=== PATIENT | female | born 1975 | race Caucasian/White ===

== ENCOUNTER 2016-08-15 09:52 | Day surgery (SDC) | payer OTHER ==
[~2016-08-15] VITALS: Ht 172.7 cm; Wt 81.8 kg
[~2016-08-15 09:52] MED LIST: CELEXA20 MG PO; CELEXA40 MG PO; DEPO-PROVER150 MG/ML IM; GLYBURIDE2.5 MG PO; IBUPROFEN800 MG PO; IRON240 MG PO; MOBIC15 MG PO; MOTRIN800 MG PO; PRENATAL + DHA1 EAC1 PO; SKELAXIN800 MG PO; ULTRAM50 MG PO; XANAX; XANAX0.5 MG PO; XANAX1 MG PO; Xanax PO; ZOLOFT100 MG PO
[2016-08-15 10:26] VITALS: BP 122/80
[2016-08-15 10:59] LABS: HEMATOCRIT 35.6 % (36.0-46.0); MCV 85.4 FL (83-99)
[2016-08-15] MEDS ORDERED: MOTRIN800 MG PO (13:00)
[2016-08-15] MEDS ORDERED: ENDOCET 5-3251 EACH PO (13:00)
[2016-08-15 13:58] VITALS: BP 114/69
[2016-08-15 15:10] VITALS: BP 118/72
== END 2016-08-15 15:30 | disposition home or self-care (01) ==
LOC: SDC 09:52
PROVIDERS: Obstetrics & Gynecology
PROC: 0UB74ZZ Excision of Bilateral Fallopian Tubes, Percutaneous Endoscopic Approach (ICD-10-PCS; principal; 2016-08-15)
DX: Z30.2 Encounter for sterilization (principal); N39.3 Stress incontinence (female) (male); F41.8 Other specified anxiety disorders
CPT/HCPCS: 84702; 85014; 85018; 86850; 86900; 86901; 88302; J0131; J1100; J1885; J2250; J2405; J2710; J3010

== ENCOUNTER 2016-10-29 07:34 | Emergency (ER) | payer OTHER ==
[~2016-10-29] VITALS: Ht 172.7 cm; Wt 93.7 kg
[~2016-10-29 07:34] MED LIST changes: +ENDOCET 5-3251 EACH PO
[2016-10-29 08:02] LABS: EOSINOPHIL (%) 2.3 % (0-5); EOSINOPHIL COUNT 0.1 K/uL (0-0.3); HEMATOCRIT 36.4 % (36.0-46.0); IMMATURE GRANULOCYTE (%) 0.4 % (0.0-0.7); INSTRUMENT ABS NEUTROPHIL CT 3.2 K/uL; LYMPHOCYTE COUNT 1.9 K/uL (1.0-2.8); MCH 29.9 PG (29.0-34.0); MCV 90.5 FL (83-99); MEAN PLAT.VOLUME 9.1 uM^3 (9.5-12.4); MONOCYTE (%) 6.5 % (3-12); MONOCYTE COUNT 0.4 K/uL (0-0.8); NEUTROPHIL (%) 56.6 % (45-76); NEUTROPHIL COUNT 3.2 K/uL (1.8-6.4); PLATELET COUNT 222 K/uL (156-360); RBC DIS.WIDTH-SD 43.1 % (39-53); RED BLOOD COUNT 4.02 M/uL (3.80-5.20); WHITE BLOOD COUNT 5.6 K/uL (4.1-10.2)
[2016-10-29 08:25] LABS: ANION GAP 7 MEQ/L (2-14); CHLORIDE 107 MEQ/L (99-109); POTASSIUM 3.6 MEQ/L (3.7-5.4); SAMPLE HEMOLYSIS CHECK 0; SAMPLE ICTERIC CHECK 0; SAMPLE LIPEMIA CHECK 0; SODIUM 140 MEQ/L (136-147)
[2016-10-29 08:31] LABS: GFR ESTIMATE (CALCULATED) > 59 mL/min/; GLUCOSE 88 mg/dL (70-99); UREA NITROGEN (BUN) 10 mg/dL (9-23)
[2016-10-29 09:04] VITALS: BP 161/87
[2016-10-29 09:04] LABS: QUANTITATIVE HCG < 4.0 MIU/ML
== END 2016-10-29 09:04 | disposition home or self-care (01) ==
LOC: EME 07:34
PROVIDERS: Emergency Medicine
DX: N93.9 Abnormal uterine and vaginal bleeding, unspecified (principal); Z87.891 Personal history of nicotine dependence
CPT/HCPCS: 80048; 84702; 85025; 99281; 99284; J2405; J7030

== ENCOUNTER 2016-11-20 06:30 | Day surgery (SDC) | payer OTHER ==
[~2016-11-20] VITALS: Ht 172.7 cm; Wt 86.2 kg
[~2016-11-20 06:30] MED LIST changes: +SPRINTEC1 EACH PO
[2016-11-20 07:03] VITALS: BP 137/96
[2016-11-20] MEDS ORDERED: MOTRIN800 MG PO (08:56)
[2016-11-20 09:33] VITALS: BP 137/84
[2016-11-20 10:18] VITALS: BP 153/82
== END 2016-11-20 10:37 | disposition home or self-care (01) ==
LOC: SDC 06:30
DX: N93.9 Abnormal uterine and vaginal bleeding, unspecified (principal); N94.6 Dysmenorrhea, unspecified; N92.0 Excessive and frequent menstruation with regular cycle; N39.3 Stress incontinence (female) (male); Z98.51 Tubal ligation status
CPT/HCPCS: 86900; 86901; 88305; J1100; J1885; J2250; J2405; J3010

== ENCOUNTER 2017-04-10 10:02 | Day surgery (SDC) | payer OTHER ==
[~2017-04-10] VITALS: Ht 172.7 cm; Wt 96.1 kg
[~2017-04-10 10:02] MED LIST changes: +BUSPAR10 MG PO; +ZANTAC150 MG PO
[2017-04-10 10:33] VITALS: BP 138/88
[2017-04-10 17:06] VITALS: BP 132/71
[2017-04-10 19:02] VITALS: BP 119/67
[2017-04-10 23:06] VITALS: BP 97/56
[2017-04-11 03:18] VITALS: BP 96/56
[2017-04-11 06:55] VITALS: BP 109/61
[2017-04-11 07:10] LABS: EOSINOPHIL (%) 0.1 % (0-5); HEMATOCRIT 33.4 % (36.0-46.0); IMMATURE GRANULOCYTE (%) 0.4 % (0.0-0.7); IMMATURE GRANULOCYTE COUNT 0.1 K/uL; INSTRUMENT ABS NEUTROPHIL CT 11.2 K/uL; LYMPHOCYTE COUNT 1.5 K/uL (1.0-2.8); MCH 29.9 PG (29.0-34.0); MCHC 33.8 G/DL (30.0-36.0); MCV 88.4 FL (83-99); MEAN PLAT.VOLUME 9.8 uM^3 (9.5-12.4); MONOCYTE (%) 5.4 % (3-12); MONOCYTE COUNT 0.7 K/uL (0-0.8); NEUTROPHIL (%) 83.3 % (45-76); NEUTROPHIL COUNT 11.2 K/uL (1.8-6.4); NRBC (%) 0.2 /100 WBC (0-0); PLATELET COUNT 283 K/uL (156-360); RBC DIS.WIDTH-CV 12.9 % (11.8-14.6); RBC DIS.WIDTH-SD 41.4 % (39-53); WHITE BLOOD COUNT 13.5 K/uL (4.1-10.2)
[2017-04-11 07:13] LABS: RED BLOOD COUNT 3.78 M/uL (3.80-5.20)
[2017-04-11] MEDS ORDERED: MOTRIN600 MG PO (08:32)
[2017-04-11] MEDS ORDERED: DOCUSATE SODIU100 MG PO (08:32)
[2017-04-11] MEDS ORDERED: ENDOCET 5-3251 EACH PO (08:32)
== END 2017-04-11 09:11 | disposition home or self-care (01) ==
LOC: SDC 10:02 → 2SOUTH 15:43 → 2EAST 15:43 → ENRESERV 15:49 → 2EAST 16:48
PROVIDERS: Obstetrics & Gynecology
DX: D06.9 Carcinoma in situ of cervix, unspecified (principal); D07.1 Carcinoma in situ of vulva; Z87.891 Personal history of nicotine dependence; N94.6 Dysmenorrhea, unspecified; N92.0 Excessive and frequent menstruation with regular cycle; N39.3 Stress incontinence (female) (male); F41.8 Other specified anxiety disorders
CPT/HCPCS: 85025; 88305; 88307; G0378; J0131; J0690; J1100; J1170; J1885; J2175; J2250; J2270; J2405; J2710; J2765; J3010